=== PATIENT | male | born 1970 | race African-American/Black ===

== ENCOUNTER 2021-04-30 10:45 | Emergency (ER) | payer MEDICARE, MEDICAID ==
[~2021-04-30] VITALS: Ht 165.1 cm; Wt 74.0 kg
[2021-04-30] MEDS ORDERED: CYCL10TA7 MT (12:36)
[2021-04-30] MEDS ORDERED: NAPR-1176 MT (12:36)
[2021-04-30] MEDS ORDERED: KETOROLAC 30MG/ML VIAL IM ONE (12:45)
[2021-04-30 13:03] VITALS: BP 135/64
== END 2021-04-30 13:03 | disposition home or self-care (01) ==
LOC: ER 10:45
DX: M54.9 Dorsalgia, unspecified (principal); E11.9 Type 2 diabetes mellitus without complications
CPT/HCPCS: 96372; 99283; J1885

== ENCOUNTER 2023-06-05 14:40 | Emergency (ER) | payer MEDICARE, MEDICAID ==
[~2023-06-05] VITALS: Ht 170.2 cm; Wt 80.0 kg
[~2023-06-05 14:40] MED LIST: CYCL10TA21 MT; NAPR-1176 MT
[2023-06-05 14:45] VITALS: O2SAT 99
[2023-06-05 15:29] VITALS: BP 128/67; PULSE 80; RESP 14; TEMP 97.4
[2023-06-05] MEDS: IBUPROFEN 600MG TABLET PO ONE (15:54)
[2023-06-05] MEDS: METHOCARBAMOL 500MG TABLET PO ONE (15:55)
[2023-06-05] MEDS ORDERED: IBUP-2029 MT (16:45)
[2023-06-05] MEDS ORDERED: METH-653 MT (16:45)
== END 2023-06-05 17:24 | disposition home or self-care (01) ==
LOC: ER 14:52
DX: S83.91XA Sprain of unspecified site of right knee, initial encounter (principal); S33.5XXA Sprain of ligaments of lumbar spine, initial encounter; S43.402A Unspecified sprain of left shoulder joint, initial encounter; E11.9 Type 2 diabetes mellitus without complications; V79.60XA Unspecified bus occupant injured in collision with unspecified motor vehicles in traffic accident, initial encounter; Y93.89 Activity, other specified; Y92.89 Other specified places as the place of occurrence of the external cause; Y99.8 Other external cause status
CPT/HCPCS: 72100; 73562; 99284